=== PATIENT | male | born 1960 | race American Indian/Alaskan Native ===

== ENCOUNTER 2017-06-10 10:52 | Outpatient (CLI) | payer BC ==
[2017-06-10 15:18] LABS: Basophils % (Auto) 0.4 % (0.0-1.8); Eosinophils % (Auto) 0.4 % (0.0-4.3); Hematocrit 44.1 % (35.5-45.6); Hemoglobin 14.7 gm/dl (11.8-15.2); Mean Corpuscular HGB Conc 33 % (32-34); Mean Corpuscular Hemoglobin 31 pg (28-32); Mean Corpuscular Volume 93 fl (84-94); Platelet Count 125 K/mm3 (140-440); Red Blood Count 4.75 M/mm3 (3.65-5.03); Red Cell Distribution Width 13.8 % (13.2-15.2); White Blood Count 5.5 K/mm3 (4.5-11.0)
[2017-06-10 15:25] LABS: Uric Acid 7.2 mg/dL (3.5-7.6)
[2017-06-15 01:32] LABS: Vitamin D, 25-OH, Total 33 ng/mL (30-100)
== END 2017-06-10 10:53 | disposition home or self-care (01) ==
LOC: LABHHL 10:52
PROVIDERS: ATTEND Internal Medicine
DX: I10 Essential (primary) hypertension (principal)
CPT/HCPCS: 36415; 80061; 82306; 82607; 83036; 84153; 84550; 85025

== ENCOUNTER 2019-02-25 10:19 | Outpatient (CLI) | payer BC ==
[2019-02-25 11:59] LABS: Calcium, Urine 16.5 mg/dL (6.8-21.3); Chloride, Urine 64.8 mmolL (110-250); Creatinine,Urine 175.5 mg/dL (0.1-20.0)
[2019-02-25 12:12] LABS: BUN/Creatinine Ratio 9; Blood Urea Nitrogen 12 mg/dL (9-20); Calcium 9.5 mg/dL (8.4-10.2); Hemolysis Index 29
[2019-02-25 12:18] LABS: Bacteria,Urine 1+ /HPF (Negative); Bilirubin,Urine NEG (Negative); Blood,Urine NEG (Negative); Color,Urine Yellow (Yellow); Mucus,Urine FEW /HPF; Protein,Urine <15 mg/dL mg/dL (Negative); Urobilinogen,Urine < 2.0 mg/dL (<2.0)
== END 2019-02-25 10:20 | disposition home or self-care (01) ==
LOC: LAB 10:19
PROVIDERS: ATTEND Internal Medicine
DX: Z00.01 Encounter for general adult medical examination with abnormal findings (principal); I10 Essential (primary) hypertension; E87.6 Hypokalemia; R79.89 Other specified abnormal findings of blood chemistry
CPT/HCPCS: 36415; 80048; 81001; 82436; 82570; 83735; 84133; 84300